=== PATIENT | male | born 1990 ===

== ENCOUNTER 2017-05-13 13:37 | Emergency (ER) | payer OTHER ==
[~2017-05-13] VITALS: Ht 177.8 cm; Wt 77.1 kg
--- NOTE | 2017-05-13 13:51 | NUR ---
ERMD AT THE BEDSIDE FOR EVAL AND EXAM.
--- NOTE | 2017-05-13 14:05 | NUR ---
Patient discharged to home in stable conditon. Written and verbal after care instructions given. Patient verbalizes understanding of instructions.
[2017-05-13 14:06] VITALS: BP 140/90
== END 2017-05-13 14:06 | disposition home or self-care (01) ==
LOC: ER 14:06
DX: L40.9 Psoriasis, unspecified (principal); F17.200 Nicotine dependence, unspecified, uncomplicated
CPT/HCPCS: A4663